=== PATIENT | female | born 1990 | race Caucasian/White ===

== ENCOUNTER 2024-09-06 23:23 | Emergency (ER) | payer OTHER, SELFPAY ==
[2024-09-06 23:27] VITALS: BP 137/79
--- NOTE | 2024-09-07 00:43 | ED.MUSCINJ ---
HPI-Injury
General
Chief Complaint: Musculo-Skeletal Complaint
Source: patient
Exam Limitations: none
Time Seen by Provider: 09/07/24 00:30
Nursing documentation reviewed up to this point in time: agreed with
History of Present Illness-Injury
Is this injury a work related problem?: Yes
Is pt an associate of [facility],[employer]/[place]?: No
Initial Injury comments:
Patient states she was at work tonight and attempted to run toward a friend. [place] a pop and sudden pain to right calf. Unable to bear weight due to pain. Brought t ED by family for eval. No knee injury.
Past History
Past History
ED Past Medical History: None
Review of Systems
Review of Systems
Allergies reviewed?: Yes
All Other Systems: ROS reviewed and negative except as documented in HPI and ROS
Constitutional: Reports no symptoms
Musculoskeletal: Reports muscle pain (Pain to right calf muscle)
Skin: Reports no symptoms
Neurological: Reports no symptoms
Psychiatric: Reports no symptoms
Musculoskeletal Injury Exam
Musculoskeletal Injury Exam
Left Calf:
Pain with Movement?: Moderate
Tender to palpation?: Moderate
Soft tissue swelling?: Mild
External deformity and angulation?: None
Joint effusion?: None
Contusion?: None
Hematoma-local bleeding into tissue?: Mild
Strain- Sprain- Tear (Connective tissue injury)?: Moderate
Crepitus with movement?: No
Joint instability?: No
Malalignment/deformity?: No
Distal skin color and temperature: normal-warm & good color
Capillary Refill: normal
Normal distal neurovascular exam?: Yes
Phy Exam
General Physical Exam
General Presentation: moderate distress
General age: appears stated age
General Skin: warm and dry
General Habitus: normal
General Mental: alert
Musculoskeletal Exam
Musculoskeletal Exam: neuro vasc intact and other (RIght calf pain, mild swelling. No evidence of compartment syndrome. Achilles intact. )
Skin Exam
Skin Exam: normal color, warm/dry and no rash
Psychiatric Exam
Psychiatric Exam: normal mood/affect
Injury Course
Orders/Labs/Results
Orders:
Orders
09/07/24 00:42
Biju Wrap Right-Treatment ONCE
Crutches-Treatment ONCE
Ibuprofen [Motrin] 600 mg PO NOW STA
*Critical Care Note
Total Time (30-74mins, 75-104mins- exclusive of procedures): Not Applicable
Update Note
Update Note:
Patient to ED for eval of right calf pain. [place] a pop to calf when she attempted to run towards a friend. RLE neurovasc. intaact. Mild swelling to calf. No evidence of compartment syndrome. Achilles intact. Concrern for calf muscle pull/tear.
WIll apply acewrap while awake. Crutches provider to assist with ambulation. SHe will follow up with her [employer] comp provider on Monday. SHe is discharged home with family.
ED Attending Note
-
Portions of this chart may have been created with voice recognition software.� Occasional wrong word or��sound alike� substitutions may have occurred due to the inherent limitations of voice recognition software.
Discharge Plan
Departure
Patient Disposition: Home (Routine Discharge)
Date of Disposition: 09/07/24
Time of Disposition: 00:43
Patient with high blood pressure during this ER visit?: No
Condition: Good
Covid-19: Not Applicable
Discharge Problem:
Strain of right calf muscle
Instructions: Muscle Strain (DC), How to Use Crutches, Ibuprofen, RICE Therapy
Referrals:
Smiley Wilcox CRNP [Family Provider]
Stand Alone Forms: Return to Work
Activity Restrictions/Additional Instructions:
Follow up with your workman's comp provider on Monday.
Interventions
Interventions:
*Risk Screen - Suicide Last Done: 09/06/24 23:27
*Neglect/Abuse Screening Last Done: 09/06/24 23:27
*ED- Fall Risk Assessment Last Done: 09/06/24 23:27
*ED COVID-19 Vaccine History Last Done: 09/06/24 23:27
Discharge Date and Time
Print Language: CYMRAES
[2024-09-07] MEDS: MOTRIN 600 MG PO (00:53)
== END 2024-09-07 01:21 | disposition home or self-care (01) ==
LOC: EMR 23:23
PROVIDERS: EMERGENCY PHYSICIAN Emergency Medicine; FAMILY PHYSICIAN Nurse Practitioner Family
DX: S86.111A Strain of other muscle(s) and tendon(s) of posterior muscle group at lower leg level, right leg, initial encounter (principal); X58.XXXA Exposure to other specified factors, initial encounter; Y99.0 Civilian activity done for income or pay; M79.661 Pain in right lower leg; R22.41 Localized swelling, mass and lump, right lower limb
CPT/HCPCS: 99282